=== PATIENT | female | born 1990 | race Hispanic/Latino ===

== ENCOUNTER 2016-10-25 09:11 | Emergency (ER) | payer MEDICAID ==
[~2016-10-25] VITALS: Ht 162.6 cm; Wt 61.2 kg
[~2016-10-25 09:11] MED LIST: ACHYD1T PO; DCS100C PO; DOCU100C37 PO; HYDR-34 PO; IBP800T PO; IBUP-1780 PO; NITR100C3 PO; OXYC-465 PO; PREN1TAB39 PO
--- OUTSIDE RECORDS SUMMARY | 2016-10-25 09:18 | XMS REPORT | Continuity of Care Document ---
Author Author [facility] Organization [facility] Address Unknown Phone Unavailable Care Team Providers Care Religion Instructor Name Role Phone ANABEL MADDOX MD PCP Insurance Providers Payer Name Policy Number Subscriber Name Relationship Belkis Kanc[employer] Amer[employer]p [id number] Meenu Stephens 18 Self / Same As Patient Advance Directives Directive Response Recorded Date/Time Advance Directives No 10/09/14 1:36pm Health Care Power of Tank Calibrator No 10/09/14 1:36pm Organ Donor Yes 10/09/14 1:36pm Resuscitation Status Full Code 10/09/14 1:36pm Problems No known problems or medical conditions. Medications Medication Dose Route Sig Days/Qty Instructions Order Date Discontinued Date Status Acetaminophen/Hydrocodone Bitart 1 - 2 Ea PO q3H PRN 08/18/10 Discontinued Ibuprofen 800 Mg PO EVERY 6 HOURS PRN 08/18/10 08/04/14 Discontinued Vits W-Ca,Fe,Fa(<1MG) 1 Each PO DAILY 08/18/10 Active Nitrofurantoin/Nitrofuran Mac 100 Mg PO TWICE A DAY 14 Qty 09/30/14 Discontinued Docusate Sodium 100 Mg PO TWICE A DAY 60 Qty 10/10/14 Active Acetaminophen/Hydrocodone Bitart 1-2 Ea PO EVERY 4HRS PRN PAIN 60 Qty 10/10/14 Active Ibuprofen 800 Mg PO EVERY 6 HOURS 60 Qty 10/10/14 Active Social History Social History Problem Response Recorded Date/Time Alcohol Use Denies Use 10/09/2014 1:27pm Recreational Drug Use No 10/09/2014 1:27pm Recent Foreign Travel No 10/09/2014 2:13pm Recent Infectious Disease Exposure No 10/09/2014 1:27pm Hospitalization with Isolation Denies 10/11/2014 12:07am Smoking Status Never a Smoker 10/09/2014 1:35pm Query Response Start Date Stop Date Smoking Status Never a Smoker Hospital Discharge Instructions Patient Instructions Physician Instructions New, Converted or Re-Newed RX: RX on Chart Plan of Care/Instructions/FU: As directed Activity as Tolerated: No Discharge Diet: No Restrictions Return to The Hospital For: as instructed Other Inst to Patient Follow Up Appt: Call to make follow up appt. for patient in 4 weeks. Activity Per routine post vaginal delivery instructions. Diet as tolerated Patient may shower or tub bathe as desired. Plan of Care Discharge Date 10/10/14 10:20pm Disposition 30 STILL A PATIENT Instructions/Education Provided VAGINAL DELIVERY DISCHARGE Forms Provided PDI Prescriptions See Medications Section Referrals ANABEL MADDOX MD (Unspecified) 11/07/14 Address: [address] [phone] Reason(s) for Referral: Follow-Up Appointment: Monday11/07/14 at 9:00 AM. Functional Status Query Response Date Recorded Patient Orientation Person Place Time Situation Normal For Age October 11, 2014 12:07am Allergies, Adverse Reactions, Alerts Allergen Type Severity Reaction Status Last Updated Codeine Allergy Unknown Active 06/08/08 Phenylephrine Allergy Unknown Active 06/08/08 Chlorpheniramine Allergy Unknown Active 06/08/08 Immunizations Name Given Type Tetanus Booster (TDap) Less than 5yrs Historical Tdap 10/10/14 Administered influenza, split (incl. purified surface antigen) 10/10/14 Administered Vital Signs Acute Vital Signs Vital Response Date/Time Temperature (Fahrenheit) 96.8 degrees F (97.6 - 99.5) Temperature (Calculated Celsius) 36.84819 degrees C (36.4 - 37.5) Temperature Source Tympanic Pulse Rate (adult) 84 bpm (60 - 90) Respiratory Rate 16 bpm (12 - 24) O2 Sat by Pulse Oximetry 98 % (88 - 100) Blood Pressure 109/61 mm Hg Pain Pain Intensity 0 Height (Feet) 5 feet Height (Inches) 5.00 inches Height (Calculated Centimeters) 165.899726 cm Weight (Pounds) 162 pounds Weight (Ounces) 4.0 oz Weight (Calculated Grams) 91122.965 gm Weight (Calculated Kilograms) 73.569541 kilograms Calculated BMI 26.96 Results Laboratory Results Test Name Result Units Flags Reference Collection Date/Time Result Date/ Time Comments White Blood Count 13.0 10^3/uL H 4.3-11.0 10/09/2014 11:57am 10/09/2014 12:21pm Red Blood Count 3.98 10^6/uL L 4.35-5.85 10/09/2014 11:57am 10/09/2014 12 :21pm Hemoglobin 12.0 G/DL 11.5-16.0 10/09/2014 11:57am 10/09/2014 12:21pm Hematocrit 34 % L 35-52 10/09/2014 11:57am 10/09/2014 12:21pm Mean Corpuscular Volume 86 FL 80-99 10/09/2014 11:57am 10/09/2014 12: 21pm Mean Corpuscular Hemoglobin 30 PG 25-34 10/09/2014 11:5710/09/2014 12:21pm Mean Corpuscular Hemoglobin Concent 35 G/DL 32-36 10/09/2014 11:57am 12:21pm Red Cell Distribution Width 12.3 % 10.0-14.5 10/09/2014 11:572014 12:21pm Platelet Count 277 10^3/uL 130-400 10/09/2014 11:57am 10/09/2014 12: 21pm Mean Platelet Volume 11.1 FL H 7.4-10.4 10/09/2014 11:5710/09/2014 12: 21pm Neutrophils (%) (Auto) 79 % H 42-75 10/09/2014 11:57am 10/09/2014 12: 21pm Lymphocytes (%) (Auto) 14 % 12-44 10/09/2014 11:57am 10/09/2014 12: 21pm Monocytes (%) (Auto) 7 % 0-12 10/09/2014 11:57am 10/09/2014 12:21pm Eosinophils (%) (Auto) 1 % 0-10 10/09/2014 11:57am 10/09/2014 12:21pm Basophils (%) (Auto) 0 % 0-10 10/09/2014 11:57am 10/09/2014 12:21pm Neutrophils # (Auto) 10.2 X 10^3 H 1.8-7.8 10/09/2014 11:57am 10/09/2014 12:21pm Lymphocytes # (Auto) 1.8 X 10^3 1.0-4.0 10/09/2014 11:57am 10/09/2014 12:21pm Monocytes # (Auto) 0.9 X 10^3 0.0-1.0 10/09/2014 11:57am 10/09/2014 12: 21pm Eosinophils # (Auto) 0.1 10^3/uL 0.0-0.3 10/09/2014 11:57am 10/09/2014 12:21pm Basophils # (Auto) 0.0 10^3/uL 0.0-0.1 10/09/2014 11:57am 10/09/2014 12 :21pm White Blood Count 11.2 10^3/uL H 4.3-11.0 09/29/2014 8:05pm 09/29/2014 8: 34pm Red Blood Count 3.86 10^6/uL L 4.35-5.85 09/29/2014 8:05pm 09/29/2014 8: 34pm Hemoglobin 11.6 G/DL 11.5-16.0 09/29/2014 8:05pm 09/29/2014 8:34pm Hematocrit 34 % L 35-52 09/29/2014 8:05pm 09/29/2014 8:34pm Mean Corpuscular Volume 88 FL 80-99 09/29/2014 8:05pm 09/29/2014 8: 34pm Mean Corpuscular Hemoglobin 30 PG 25-34 09/29/2014 8:05pm 09/29/2014 8: 34pm Mean Corpuscular Hemoglobin Concent 34 G/DL 32-36 09/29/2014 8:05pm 01/2015 8:34pm Red Cell Distribution Width 12.5 % 10.0-14.5 09/29/2014 8:05pm 2014 8:34pm Platelet Count 244 10^3/uL 130-400 09/29/2014 8:05pm 09/29/2014 8:34pm Mean Platelet Volume 11.3 FL H 7.4-10.4 09/29/2014 8:05pm 09/29/2014 8: 34pm Neutrophils (%) (Auto) 69 % 42-75 09/29/2014 8:05pm 09/29/2014 8:34pm Lymphocytes (%) (Auto) 20 % 12-44 09/29/2014 8:05pm 09/29/2014 8:34pm Monocytes (%) (Auto) 10 % 0-12 09/29/2014 8:05pm 09/29/2014 8:34pm Eosinophils (%) (Auto) 1 % 0-10 09/29/2014 8:05pm 09/29/2014 8:34pm Basophils (%) (Auto) 0 % 0-10 09/29/2014 8:05pm 09/29/2014 8:34pm Neutrophils # (Auto) 7.7 X 10^3 1.8-7.8 09/29/2014 8:05pm 09/29/2014 8: 34pm Lymphocytes # (Auto) 2.3 X 10^3 1.0-4.0 09/29/2014 8:05pm 09/29/2014 8: 34pm Monocytes # (Auto) 1.1 X 10^3 H 0.0-1.0 09/29/2014 8:05pm 09/29/2014 8: 34pm Eosinophils # (Auto) 0.1 10^3/uL 0.0-0.3 09/29/2014 8:05pm 09/29/2014 8 :34pm Basophils # (Auto) 0.0 10^3/uL 0.0-0.1 09/29/2014 8:05pm 09/29/2014 8: 34pm Urine Color YELLOW 09/29/2014 8:45pm 09/29/2014 9:57pm Urine Clarity CLEAR 09/29/2014 8:45pm 09/29/2014 9:57pm Urine pH 7 5-9 09/29/2014 8:45pm 09/29/2014 9:57pm Urine Specific [place] 1.015 * 1.016-1.022 09/29/2014 8:45pm 2014 9:57pm Urine Protein 2+ * NEGATIVE 09/29/2014 8:45pm 09/29/2014 9:57pm Urine Glucose (UA) NEGATIVE NEGATIVE 09/29/2014 8:45pm 09/29/2014 9: 57pm Urine RBC (Auto) NEGATIVE NEGATIVE 09/29/2014 8:45pm 09/29/2014 9: 57pm Urine Ketones NEGATIVE NEGATIVE 09/29/2014 8:45pm 09/29/2014 9:57pm Urine Nitrite NEGATIVE NEGATIVE 09/29/2014 8:45pm 09/29/2014 9:57pm Urine Bilirubin NEGATIVE NEGATIVE 09/29/2014 8:45pm 09/29/2014 9: 57pm Urine Urobilinogen 1 MG/DL NORMAL 09/29/2014 8:45pm 09/29/2014 9:57pm Urine Leukocyte Esterase 1+ * NEGATIVE 09/29/2014 8:45pm 09/29/2014 9: 57pm Urine RBC 0-2 /HPF 09/29/2014 8:45pm 09/29/2014 9:57pm Urine WBC 2-5 /HPF 09/29/2014 8:45pm 09/29/2014 9:57pm Urine Bacteria MODERATE /HPF * 09/29/2014 8:45pm 09/29/2014 9:57pm Urine Squamous Epithelial Cells 5-10 /HPF 09/29/2014 8:45pm 2014 9:57pm Urine Crystals PRESENT /LPF * 09/29/2014 8:45pm 09/29/2014 9:57pm Urine Amorphous Sediment MOD NEHA PHOSPHATE /LPF * 09/29/2014 8:45pm 9:57pm Urine Casts NONE /LPF 09/29/2014 8:45pm 09/29/2014 9:57pm Urine Mucus SMALL /LPF * 09/29/2014 8:45pm 09/29/2014 9:57pm Urine Culture Indicated YES 09/29/2014 8:45pm 09/29/2014 9:57pm Procedures Procedure Status Date Provider(s) Anesthesia consultation completed 10/20/14 ANABEL MADDOX MD Encounters Encounter Location Date/Time Discharged Inpatient Via [facility] 10/09/14 11:11am Discharged Inpatient Via [facility] 09/29/14 5:46pm
--- NOTE | 2016-10-25 10:18 | ED Headache ---
General Chief Complaint: Head/Cervical Problems Stated Complaint: POSS EXPOSURE TO CARBON MONOXIDE Source: patient, family, RN notes reviewed Exam Limitations: no limitations History of Present Illness Time seen by provider: 10:00 Initial Comments Having intermittent bad headaches since the . Throbbing; pounding. Worse c / position changes. No known fever. ? CO exposure. (+) nausea. Timing/Duration: other Severity/Quality: moderate (8/10) Location: global Prior Headaches/Recent Trauma: no recent headache/trauma Modifying Factors: worse with movement Associated Symptoms: No stiff neck, other ((+) nausea) Allergies and Home Medications Allergies Coded Allergies: chlorpheniramine (Verified Allergy, Unknown, 06/08/08) codeine (Verified Allergy, Unknown, 06/08/08) phenylephrine (Verified Allergy, Unknown, 06/08/08) Home Medications Aspirin/Acetaminophen/Caffeine 1 Each Tablet 1 EACH PO DAILY PRN PRN HEADACHE ( Reported) Cefdinir 300 Mg Capsule #14 300 MG PO BID Prescribed by: JELENA ROMERO on 10/25/16 1429 Ciprofloxacin HCl 500 Mg Tablet #10 500 MG PO BID Prescribed by: TASHA FERRARI on 10/31/16 1207 Metronidazole 500 Mg Tablet #14 500 MG PO BID Prescribed by: TASHA FERRARI on 10/31/16 1207 Potassium Chloride 20 Meq Tablet.er #8 40 MEQ PO BID Prescribed by: TASHA FERRARI on 10/31/16 1207 Prochlorperazine Maleate 5 Mg Tablet #10 5 MG PO Q8H PRN PRN NAUSEA/VOMITING Prescribed by: TASHA FERRARI on 10/31/16 1207 Constitutional: see HPINo fever Gastrointestinal: see HPI nausea : No Psychiatric/Neurological: See HPI Headache All Other Systems Reviewed Negative Unless Noted: Yes (Negative excepted noted.) Past Botndbg-Jyqskl-Sqetfp Hx Patient Social History Recent Foreign Travel: No Contact w/Someone Who Travel: No Recent Hopitalizations: No Immunizations Up To Date Tetanus Booster (TDap): Less than 5yrs Seasonal Allergies Seasonal Allergies: No Surgeries HX Surgeries: No Respiratory Hx Respiratory Disorders: No Cardiovascular Hx Cardiac Disorders: No Neurological Hx Neurological Disorders: No Reproductive System Hx Reproductive Disorders: No Genitourinary Hx Genitourinary Disorders: No Gastrointestinal Hx Gastrointestinal Disorders: No Musculoskeletal Hx Musculoskeletal Disorders: No Endocrine Hx Endocrine Disorders: No HEENT HX ENT Disorders: No Cancer Hx Cancer: No Psychosocial Hx Psychiatric Problems: No Integumentary HX Skin/Integumentary Disorder: No Blood Transfusions Hx Blood Disorders: No Adverse Reaction to a Blood Tr: No Family Medical History Family Medial History: Arthritis 19 MOTHER (MGM) Diabetes mellitus 19 MOTHER (MGM) Hypercholesterolemia 19 MOTHER (MGM) No Family History of: AIDS Abdominal aortic aneurysm Box Elder's disease Alcoholism Alzheimer's disease Aphasia Asthma Cancer of mouth Cardiovascular disease Cataracts Colon cancer Completed stroke Congenital disease Congenital heart disease Coronary thrombosis Cystic fibrosis Deafness or hearing loss Dementia Drug abuse Dysphasia Fibrocystic disease of breast Gastroenteritis Glaucoma Headache disorder Hypertension Infertility Kidney disease Myocardial infarction Neoplasm Not obtainable due to adoption Osteoporosis Parkinson's disease Prostate cancer Psychosocial problem Respiratory disorder Seizure disorder Severe allergy Thyroid disease Tuberculosis Visual disorder Physical Exam Vital Signs Capillary Refill : General Appearance: WD/WN other (appears uncomfortable) HEENT: PERRL/EOMI TMs normal pharynx normal Neck: supple Cardiovascular: regular rate, rhythm Respiratory: no respiratory distress Gastrointestinal: other (flat; benign) Psychiatric: alert oriented x 3 depressed affect Crainal Nerves: normal hearing normal speech PERRL Coordination/Gait: normal finger to nose Motor/Sensory: no motor deficit no sensory deficit no pronator drift Skin: warm/dry Lymphatic: no adenopathy Progress/Results/Core Measures Results/Orders Lab Results Laboratory Tests Test 10/25/16 10:00 10/25/16 11:11 10/25/16 11:50 Range/Units Alanine Aminotransferase (ALT/SGPT) 26 0-55 U/L Albumin 4.2 3.2-4.5 G/DL Alkaline Phosphatase 33 L 40-136 U/L Anion Gap 10 5-14 MMOL/L Aspartate Amino Transf (AST/SGOT) 21 5-34 U/L BUN/Creatinine Ratio 22 Basophils # (Auto) 0.0 0.0-0.1 10^3/uL Basophils (%) (Auto) 1 0-10 % Blood Urea Nitrogen 15 7-18 MG/DL Calcium Level 9.2 8.5-10.1 MG/DL Carbon Dioxide Level 26 21-32 MMOL/L Carboxyhemoglobin 3.7 H 0.5-2.5 % Chloride Level 107 98-107 MMOL/L Creatinine 0.67 0.60-1.30 MG/DL Eosinophils # (Auto) 0.1 0.0-0.3 10^3/uL Eosinophils (%) (Auto) 1 0-10 % Estimat Glomerular Filtration Rate > 60 Glucose Level 86 70-105 MG/DL Hematocrit 38 35-52 % Hemoglobin 13.1 11.5-16.0 G/DL Lymphocytes # (Auto) 1.6 1.0-4.0 X 10^3 Lymphocytes (%) (Auto) 31 12-44 % Mean Corpuscular Hemoglobin 30 25-34 PG Mean Corpuscular Hemoglobin Concent 34 32-36 G/DL Mean Corpuscular Volume 87 80-99 FL Mean Platelet Volume 11.6 H 7.4-10.4 FL Monocytes # (Auto) 0.8 0.0-1.0 X 10^3 Monocytes (%) (Auto) 16 H 0-12 % Neutrophils # (Auto) 2.6 1.8-7.8 X 10^3 Neutrophils (%) (Auto) 50 42-75 % Platelet Count 310 130-400 10^3/uL Potassium Level 3.3 L 3.6-5.0 MMOL/L Red Blood Count 4.39 4.35-5.85 10^6/uL Red Cell Distribution Width 12.0 10.0-14.5 % Sodium Level 143 135-145 MMOL/L Total Bilirubin 1.1 H 0.1-1.0 MG/DL Total Protein 6.7 6.4-8.2 G/DL White Blood Count 5.1 4.3-11.0 10^3/uL Serum Test, Qualitative NEGATIVE NEGATIVE Urine Amorphous Sediment MOD NEHA URATES H /LPF Urine Bacteria FEW H /HPF Urine Bilirubin 1+ H NEGATIVE Urine Casts NONE /LPF Urine Clarity SLIGHTLY CLOUDY Urine Color SCOTT H Urine Crystals PRESENT H /LPF Urine Culture Indicated YES Urine Glucose (UA) NEGATIVE NEGATIVE Urine Ketones 4+ H NEGATIVE Urine Leukocyte Esterase 1+ H NEGATIVE Urine Mucus LARGE H /LPF Urine Nitrite NEGATIVE NEGATIVE Urine Protein 2+ H NEGATIVE Urine RBC NONE /HPF Urine RBC (Auto) NEGATIVE NEGATIVE Urine Specific [place] 1.020 1.016-1.022 Urine Squamous Epithelial Cells 10-25 H /HPF Urine Urobilinogen 4 H NORMAL MG/DL Urine WBC 5-10 H /HPF Urine pH 6 5-9 Micro Results Microbiology 10/25/16 Influenza Types A,B Antigen (NIKO) - Final, Complete 10/25/16 Urine Culture - Final, Complete My Orders Orders-JELENA ROMERO DO Carboxyhemoglobin (10/25/16 09:41) Saline Lock/Iv-Start (10/25/16 10:35) Cbc With Automated Diff (10/25/16 10:35) Comprehensive Metabolic Panel (10/25/16 10:35) Hcg,Qualitative Serum (10/25/16 10:35) Ua Culture If Indicated (10/25/16 10:35) Influenza A And B Antigens (10/25/16 10:35) Ketorolac Injection (Toradol Injection) (10/25/16 10:45) Urine Culture (10/25/16 11:50) Saline Lock/Iv-Start (10/25/16 12:28) Ceftriaxone Injection (Rocephin Injectio (10/25/16 12:30) D5 Ns 1000 Ml Iv Solution (Dextrose 5%/0 (10/25/16 12:28) Saline Lock/Iv-Start (10/25/16 13:35) D5 Ns 1000 Ml Iv Solution (Dextrose 5%/0 (10/25/16 13:35) Ondansetron Injection (Zofran Injectio (10/25/16 14:55) Diphenhydramine Injection (Benadryl Inje (10/25/16 15:45) Prochlorperazine Injection (Compazine In (10/25/16 15:45) Iv Infusion <= First Hr Ed (10/25/16 ) Medications Given in ED Vital Signs/I&O Progress Note : Progress Note Much better p/ IVF's and meds. Admits to poor po intake. Departure Impression Impression: Primary Impression: Vascular headache Additional Impressions: UTI (urinary tract infection) Hypovolemia due to dehydration Disposition: 01 HOME, SELF-CARE Condition: Improved Departure-Patient Inst. Decision time for Depature: 14:27 Referrals: [facility] (PCP/Family) Primary Care Physician Patient Instructions: Dehydration, Adult (DC), Headache, Adult (DC), Urinary Tract Infection, Adult (DC) Add. Discharge Instructions: All discharge instructions reviewed with patient and/or family. Voiced understanding. ALSO GIVEN Rx FOR ZOFRAN 4 mg #10 1 PO Q 6 H PRN N/V. Scripts Cefdinir 300 Mg [id number] Mg PO BID uti #14 CAP Ref 0 Prov:JELENA ROMERO Livia DO 10/25/16 JELENA ROMERO Livia DO Oct 25, 2016 10:18 Dextrose/Sodium Chloride 1,000 ml @ 0 mls/hr Q0M ONCE IV 10/25/16 13:35 10/25/16 13:37 DC 10/25/16 14:01 0 MLS/HR Ketorolac Tromethamine 30 mg 30 mg ONCE ONCE IVP 10/25/16 10:45 10/25/16 10:46 DC 10/25/16 11:16 30 MG Vital Signs/I&O Vital Sign - Last 12Hours 10/25/16 09:25 Temp 99.1 Pulse 70 Resp 16 B/P 135/68 O2 Delivery Room Air Progress Note : Progress Note Much better p/ IVF's and meds. Admits to poor po intake. Departure Impression Impression: Primary Impression: Vascular headache Additional Impressions: UTI (urinary tract infection) Hypovolemia due to dehydration Disposition: 01 HOME, SELF-CARE Condition: Improved Departure-Patient Inst. Decision time for Depature: 14:27 Referrals: [facility] (PCP/Family) Primary Care Physician Patient Instructions: Dehydration, Adult (DC), Headache, Adult (DC), Urinary Tract Infection, Adult (DC) Add. Discharge Instructions: All discharge instructions reviewed with patient and/or family. Voiced understanding. ALSO GIVEN Rx FOR ZOFRAN 4 mg #10 1 PO Q 6 H PRN N/V. Scripts Cefdinir 300 Mg [id number] Mg PO BID uti #14 CAP Ref 0 Prov:NICKJELENA MALDONADO Livia DO 10/25/16 JELENA ROMERO DO Oct 25, 2016 10:18
[2016-10-25] MEDS ORDERED: KETOROLAC 30 MG/ML VIAL IVP ONE (10:45)
[2016-10-25 11:11] LABS: BASOPHILS % (AUTO) 1 % (0-10); EOSINOPHILS # (AUTO) 0.1 10^3/uL (0.0-0.3); EOSINOPHILS % (AUTO) 1 % (0-10); LYMPHOCYTES # (AUTO) 1.6 X 10^3 (1.0-4.0); LYMPHOCYTES % (AUTO) 31 % (12-44); MEAN CORPUSCULAR HEMOGLOBIN 30 PG (25-34); MEAN CORPUSCULAR HGB CONC 34 G/DL (32-36); MEAN CORPUSCULAR VOLUME 87 FL (80-99); MEAN PLATELET VOLUME 11.6 FL (7.4-10.4); MONOCYTES # (AUTO) 0.8 X 10^3 (0.0-1.0); MONOCYTES % (AUTO) 16 % (0-12); NEUTROPHILS # (AUTO) 2.6 X 10^3 (1.8-7.8); NEUTROPHILS % (AUTO) 50 % (42-75); PLATELET COUNT 310 10^3/uL (130-400); RED BLOOD COUNT 4.39 10^6/uL (4.35-5.85); WHITE BLOOD COUNT 5.1 10^3/uL (4.3-11.0)
[2016-10-25 11:27] LABS: ALANINE AMINOTRANSFERASE 26 U/L (0-55); ALBUMIN 4.2 G/DL (3.2-4.5); ANION GAP 10 MMOL/L (5-14); ASPARTATE AMINO TRANSFERASE 21 U/L (5-34); BILIRUBIN,TOTAL 1.1 MG/DL (0.1-1.0); BLOOD UREA NITROGEN 15 MG/DL (7-18); BUN/CREATININE RATIO 22; CALCIUM 9.2 MG/DL (8.5-10.1); CARBON DIOXIDE 26 MMOL/L (21-32); CHLORIDE 107 MMOL/L (98-107); CREATININE SERUM 0.67 MG/DL (0.60-1.30); GFR ESTIMATED > 60; GLUCOSE 86 MG/DL (70-105); POTASSIUM 3.3 MMOL/L (3.6-5.0); SODIUM 143 MMOL/L (135-145); TOTAL PROTEIN 6.7 G/DL (6.4-8.2)
[2016-10-25 12:01] LABS: KETONES,URINE 4+ (NEGATIVE); LEUKOCYTE ESTERASE ,URINE 1+ (NEGATIVE); NITRITE,URINE NEGATIVE (NEGATIVE); PH,URINE 6 (5-9); PROTEIN,URINE 2+ (NEGATIVE); UROBILINOGEN,URINE 4 MG/DL (NORMAL)
[2016-10-25 12:18] LABS: BILIRUBIN,URINE 1+ (NEGATIVE)
[2016-10-25] MEDS ORDERED: D5 NS 1000 ML IV SOLUTION 1,000 ML IV ONE ×2 (12:28→13:35)
[2016-10-25] MEDS ORDERED: cefTRIAXone INJECTION 1,000 MG in NORMAL SALINE (BAXTER MINI) 50 ML IV ONE (12:30)
[2016-10-25] MEDS ORDERED: CEFD300C3 PO (14:29)
[2016-10-25] MEDS ORDERED: ONDANSETRON 4 MG/2 ML (SDV) Z0FRAN ONE (14:55)
[2016-10-25] MEDS ORDERED: diphenhydrAMINE 50 MG/ML INJ (BENADRYL) IVP ONE (15:45)
[2016-10-25] MEDS ORDERED: PROCHLORPERAZINE 10 MG/2ML INJ (COMPAZINE) IV ONE (15:45)
[2016-10-25 16:11] VITALS: BP 101/64
== END 2016-10-25 16:15 | disposition home or self-care (01) ==
LOC: EDUNIT# 09:11 → ER 09:14
DX: G44.1 Vascular headache, not elsewhere classified (principal); N39.0 Urinary tract infection, site not specified; E86.0 Dehydration; E86.1 Hypovolemia
CPT/HCPCS: 36415; 80053; 81000; 82375; 84703; 85025; 87088; 87804; 96361; 96365; 96375

== ENCOUNTER 2016-10-31 11:08 | Emergency (ER) | payer MEDICAID ==
[~2016-10-31] VITALS: Ht 162.6 cm; Wt 61.5 kg
[~2016-10-31 11:08] MED LIST changes: +CEFD300C3 PO
--- OUTSIDE RECORDS SUMMARY | 2016-10-31 11:13 | XMS REPORT | Continuity of Care Document ---
Author Author [facility] Organization [facility] Address Unknown Phone Unavailable Care Team Providers Care Flexographic Press Set Up Operator Name Role Phone ANABEL MADDOX MD PCP Insurance Providers Payer Name Policy Number Subscriber Name Relationship Belkis K[employer] Amerigrp [id number] Meenu Stephens 18 Self / Same As Patient Advance Directives Directive Response Recorded Date/Time Advance Directives No 10/09/14 1:36pm Health Care Power of Shed Boss No 10/09/14 1:36pm Organ Donor Yes 10/09/14 [...] Referrals ANABEL MADDOX MD (Unspecified) 11/07/14 Address: [address] [phone] Reason(s) for Referral: Follow-Up Appointment: Monday11/07/14 at [...] F (97.6 - 99.5) Temperature (Calculated Celsius) 36.59870 degrees C (36.4 - 37.5) Temperature Source Tympanic Pulse Rate (adult) 84 bpm (60 - 90) Respiratory Rate 16 bpm (12 - 24) O2 Sat by Pulse Oximetry 98 % (88 - 100) Blood Pressure 109/61 mm Hg Pain Pain Intensity 0 Height (Feet) 5 feet Height (Inches) 5.00 inches Height (Calculated Centimeters) 165.802008 cm Weight (Pounds) 162 pounds Weight (Ounces) 4.0 oz Weight (Calculated Grams) 37266.965 gm Weight (Calculated Kilograms) 73.935482 kilograms Calculated BMI 26.96 Results Laboratory Results [...] 5-9 09/29/2014 8:45pm 09/29/2014 9:57pm Urine Specific [place] 1.015 * 1.016-1.022 09/29/2014 8:45pm 2014 9:57pm [...] Encounters Encounter Location Date/Time Discharged Inpatient Via [facility] 10/09/14 11:11am Discharged Inpatient Via [facility] 09/29/14 5:46pm
[2016-10-31] MEDS ORDERED: NS IV 1000 ML 1,000 ML IV SCH (11:15)
--- NOTE | 2016-10-31 11:24 | ED Abdominal Pain ---
General Chief Complaint: -Female Stated Complaint: UTI;DEHYDRATION Source of Information: Patient Exam Limitations: No Limitations History of Present Illness Time Seen By Provider: 11:22 Initial Comments To ER with nausea and vomiting that is worse with sitting up. She was seen here a few days ago for a severe headache, given medications which improved her symptoms and sent home. She was diagnosed with urinary tract infection. She has been taking her antibiotics and drinking Gatorade but states that in order to not be nauseous she has to lay flat and lay still. She denies diarrhea. She reports chills but no measured fevers. No pain. States that her headaches are much better. Timing/Duration: 4-5 Days Radiation: No Radiation Associated Symptoms: Nausea/Vomiting Allergies and Home Medications Allergies Coded Allergies: chlorpheniramine (Verified Allergy, Unknown, 06/08/08) codeine (Verified Allergy, Unknown, 06/08/08) phenylephrine (Verified Allergy, Unknown, 06/08/08) Home Medications Aspirin/Acetaminophen/Caffeine 1 Each Tablet 1 EACH PO DAILY PRN PRN HEADACHE ( Reported) Cefdinir 300 Mg Capsule #14 300 MG PO BID Prescribed by: JELENA ROMERO on 10/25/16 1429 Review of Systems Constitutional: see HPI EENTM: No Symptoms Reported Respiratory: No Symptoms Reported Cardiovascular: No Symptoms Reported Gastrointestinal: See HPI Nausea Vomiting Genitourinary: No Symptoms Reported Musculoskeletal: no symptoms reported Skin: no symptoms reported Psychiatric/Neurological: No Symptoms Reported Endocrine: No Symptoms Reported Hematologic/Lymphatic: No Symptoms Reported Past Lyqceup-Fcnhnp-Nosqss Hx Patient Social History Recent Foreign Travel: No Contact w/Someone Who Travel: No Recent Hopitalizations: No Immunizations Up To Date Tetanus Booster (TDap): Less than 5yrs Seasonal Allergies Seasonal Allergies: No Surgeries HX Surgeries: No Respiratory Hx Respiratory Disorders: No Cardiovascular Hx Cardiac Disorders: No Neurological Hx Neurological Disorders: No Reproductive System Hx Reproductive Disorders: No Genitourinary Hx Genitourinary Disorders: No Gastrointestinal Hx Gastrointestinal Disorders: No Musculoskeletal Hx Musculoskeletal Disorders: No Endocrine Hx Endocrine Disorders: No HEENT HX ENT Disorders: No Cancer Hx Cancer: No Psychosocial Hx Psychiatric Problems: No Integumentary HX Skin/Integumentary Disorder: No Blood Transfusions Hx Blood Disorders: No Adverse Reaction to a Blood Tr: No Family Medical History Family Medial History: Arthritis 19 MOTHER (MGM) Diabetes mellitus 19 MOTHER (MGM) Hypercholesterolemia 19 MOTHER (MGM) No Family History of: AIDS Abdominal aortic aneurysm [place]viers's disease Alcoholism Alzheimer's disease Aphasia Asthma Cancer of mouth Cardiovascular disease Cataracts Colon cancer Completed stroke Congenital disease Congenital heart disease Coronary thrombosis Cystic fibrosis Deafness or hearing loss Dementia Drug abuse Dysphasia Fibrocystic disease of breast Gastroenteritis Glaucoma Headache disorder Hypertension Infertility Kidney disease Myocardial infarction Neoplasm Not obtainable due to adoption Osteoporosis Parkinson's disease Prostate cancer Psychosocial problem Respiratory disorder Seizure disorder Severe allergy Thyroid disease Tuberculosis Visual disorder Physical Exam Vital Signs VS - Last 72 Hours, by Label 10/31/16 11:21 Temp 97.6 Pulse 57 Resp 18 B/P 118/84 Pulse Ox 96 Capillary Refill : General Appearance: WD/WN no apparent distress other (at this time, she is laying in bed with the head of the bed elevated at about 30 and she denies any headache or nausea at this time. She is not hypertensive, hypotensive or tachycardic.) HEENT: PERRL/EOMI normal ENT inspection Neck: non-tender full range of motion Respiratory: normal breath sounds no respiratory distress no accessory muscle use Cardiovascular: regular rate, rhythm no murmur Gastrointestinal: normal bowel sounds non tender soft Extremities: normal range of motion non-tender Back: No CVA tenderness (R), No CVA tenderness (L) Neurologic/Psychiatric: alert normal mood/affect oriented x 3 Skin: normal color warm/dry Progress/Results/Core Measures Results/Orders Lab Results Laboratory Tests Test 10/31/16 11:13 10/31/16 11:16 Range/Units Ur Tricyclic Antidepressants Screen NEGATIVE NEGATIVE Urine Amphetamines Screen NEGATIVE NEGATIVE Urine Bacteria TRACE /HPF Urine Barbiturates Screen NEGATIVE NEGATIVE Urine Benzodiazepines Screen NEGATIVE NEGATIVE Urine Bilirubin 2+ H NEGATIVE Urine Cannabinoids Screen POSITIVE H NEGATIVE Urine Casts NONE /LPF Urine Clarity SLIGHTLY CLOUDY Urine Cocaine Screen NEGATIVE NEGATIVE Urine Color SCOTT H Urine Crystals NONE /LPF Urine Culture Indicated YES Urine Glucose (UA) NEGATIVE NEGATIVE Urine Ketones 3+ H NEGATIVE Urine Leukocyte Esterase 1+ H NEGATIVE Urine Methadone Screen NEGATIVE NEGATIVE Urine Methamphetamines Screen NEGATIVE NEGATIVE Urine Mucus LARGE H /LPF Urine Nitrite POSITIVE H NEGATIVE Urine Opiates Screen NEGATIVE NEGATIVE Urine Oxycodone Screen NEGATIVE NEGATIVE Urine Phencyclidine Screen NEGATIVE NEGATIVE Urine Propoxyphene Screen NEGATIVE NEGATIVE Urine Protein 3+ H NEGATIVE Urine RBC RARE /HPF Urine RBC (Auto) NEGATIVE NEGATIVE Urine Specific [place] 1.030 H 1.016-1.022 Urine Squamous Epithelial Cells >50 H /HPF Urine Urobilinogen 4 H NORMAL MG/DL Urine WBC 10-25 H /HPF Urine pH 6 5-9 Alanine Aminotransferase (ALT/SGPT) 18 0-55 U/L Albumin 4.5 3.2-4.5 G/DL Alkaline Phosphatase 31 L 40-136 U/L Anion Gap 14 5-14 MMOL/L Aspartate Amino Transf (AST/SGOT) 20 5-34 U/L BUN/Creatinine Ratio 17 Basophils # (Auto) 0.0 0.0-0.1 10^3/uL Basophils (%) (Auto) 1 0-10 % Blood Urea Nitrogen 12 7-18 MG/DL Calcium Level 9.7 8.5-10.1 MG/DL Carbon Dioxide Level 28 21-32 MMOL/L Chloride Level 102 98-107 MMOL/L Creatinine 0.69 0.60-1.30 MG/DL Eosinophils # (Auto) 0.1 0.0-0.3 10^3/uL Eosinophils (%) (Auto) 2 0-10 % Estimat Glomerular Filtration Rate > 60 Glucose Level 95 70-105 MG/DL Hematocrit 41 35-52 % Hemoglobin 14.5 11.5-16.0 G/DL Lymphocytes # (Auto) 2.4 1.0-4.0 X 10^3 Lymphocytes (%) (Auto) 40 12-44 % Mean Corpuscular Hemoglobin 30 25-34 PG Mean Corpuscular Hemoglobin Concent 36 32-36 G/DL Mean Corpuscular Volume 86 80-99 FL Mean Platelet Volume 11.4 H 7.4-10.4 FL Monocytes # (Auto) 0.7 0.0-1.0 X 10^3 Monocytes (%) (Auto) 12 0-12 % Neutrophils # (Auto) 2.7 1.8-7.8 X 10^3 Neutrophils (%) (Auto) 46 42-75 % Platelet Count 377 130-400 10^3/uL Potassium Level 2.7 L 3.6-5.0 MMOL/L Red Blood Count 4.77 4.35-5.85 10^6/uL Red Cell Distribution Width 12.5 10.0-14.5 % Sodium Level 144 135-145 MMOL/L Total Bilirubin 1.3 H 0.1-1.0 MG/DL Total Protein 7.4 6.4-8.2 G/DL White Blood Count 5.9 4.3-11.0 10^3/uL My Orders Orders-TASHA FERRARI APRN Ua Culture If Indicated (10/31/16 11:08) Saline Lock/Iv-Start (10/31/16 11:08) Cbc With Automated Diff (10/31/16 11:08) Comprehensive Metabolic Panel (10/31/16 11:08) Urine Bedside (10/31/16 11:08) Ns Iv 1000 Ml (Sodium Chloride 0.9%) (10/31/16 11:15) Diphenhydramine Injection (Benadryl Inje (10/31/16 11:30) Prochlorperazine Injection (Compazine In (10/31/16 11:30) Drug Screen Stat (Urine) (10/31/16 11:21) Urine Culture (10/31/16 11:13) Ceftriaxone Injection (Rocephin Injectio (10/31/16 12:00) Metronidazole Tablet (Flagyl Tablet) (10/31/16 12:00) Potassium Chloride Powder (Klor Con 20 M (10/31/16 12:00) Medications Given in ED Current Medications Medications Dose Ordered Sig/Renee Route Start Time Stop Time Status Last Admin Dose Admin Diphenhydramine HCl 12.5 mg ONCE ONCE IVP 10/31/16 11:30 10/31/16 11:31 DC 10/31/16 11:33 12.5 MG Prochlorperazine Edisylate 5 mg ONCE ONCE IV 10/31/16 11:30 10/31/16 11:31 DC 10/31/16 11:33 5 MG Vital Signs/I&O Vital Sign - Last 12Hours 10/31/16 11:21 Temp 97.6 Pulse 57 Resp 18 B/P 118/84 Pulse Ox 96 Progress Note : Progress Note 1202-her urinalysis from a few days ago showed Gardnerella. We will give Flagyl. Departure Impression Impression: Primary Impression: Gardnerella infection Additional Impressions: Nausea & vomiting Urinary tract infection Qualified Code: N30.00 - Acute cystitis without hematuria Disposition: 01 HOME, SELF-CARE Condition: Stable Departure-Patient Inst. Decision time for Depature: 12:03 Referrals: [facility] (PCP/Family) Primary Care Physician Patient Instructions: Urinary Tract Infection, Adult (DC) Add. Discharge Instructions: Stop the Omnicef antibiotics that you are currently on and start the new antibiotics 2. Follow-up with your regular doctor later this week for recheck All discharge instructions reviewed with patient and/or family. Voiced understanding. Scripts Prochlorperazine Maleate (Compazine)5 Mg Tablet5 Mg PO Q8H PRN NAUSEA/VOMITING # 10 TAB Prov:TASHA FERRARI APRN 10/31/16 Potassium Chloride 20 Meq Tablet.er40 Meq PO BID #8 TAB Prov:TASHA FERRARI APRN 10/31/16 Metronidazole (Flagyl)500 Mg [id number] Mg PO BID #14 TAB Prov:TASHA FERRARI APRN 10/31/16 Ciprofloxacin HCl (Cipro)500 Mg [id number] Mg PO BID #10 TAB Prov:TASHA FERRARI APRN 10/31/16 TASHA FERRARI APRN Oct 31, 2016 11:24
[2016-10-31] MEDS ORDERED: ASPI-992 PO (11:27)
[2016-10-31 11:30] LABS: BASOPHILS % (AUTO) 1 % (0-10); EOSINOPHILS # (AUTO) 0.1 10^3/uL (0.0-0.3); EOSINOPHILS % (AUTO) 2 % (0-10); LYMPHOCYTES # (AUTO) 2.4 X 10^3 (1.0-4.0); LYMPHOCYTES % (AUTO) 40 % (12-44); MEAN CORPUSCULAR HEMOGLOBIN 30 PG (25-34); MEAN CORPUSCULAR HGB CONC 36 G/DL (32-36); MEAN CORPUSCULAR VOLUME 86 FL (80-99); MEAN PLATELET VOLUME 11.4 FL (7.4-10.4); MONOCYTES # (AUTO) 0.7 X 10^3 (0.0-1.0); MONOCYTES % (AUTO) 12 % (0-12); NEUTROPHILS # (AUTO) 2.7 X 10^3 (1.8-7.8); NEUTROPHILS % (AUTO) 46 % (42-75); PLATELET COUNT 377 10^3/uL (130-400); RED BLOOD COUNT 4.77 10^6/uL (4.35-5.85); RED CELL DISTRIBUTION WIDTH 12.5 % (10.0-14.5); WHITE BLOOD COUNT 5.9 10^3/uL (4.3-11.0)
[2016-10-31] MEDS ORDERED: PROCHLORPERAZINE 10 MG/2ML INJ (COMPAZINE) IV ONE (11:30)
[2016-10-31] MEDS ORDERED: diphenhydrAMINE 50 MG/ML INJ (BENADRYL) IVP ONE (11:30)
[2016-10-31 11:34] LABS: KETONES,URINE 3+ (NEGATIVE); LEUKOCYTE ESTERASE ,URINE 1+ (NEGATIVE); NITRITE,URINE POSITIVE (NEGATIVE); PH,URINE 6 (5-9); PROTEIN,URINE 3+ (NEGATIVE); UROBILINOGEN,URINE 4 MG/DL (NORMAL)
[2016-10-31 11:46] LABS: BILIRUBIN,URINE 2+ (NEGATIVE); SQUAMOUS EPITHELIAL CELL,UR >50 /HPF
[2016-10-31 11:52] LABS: ALANINE AMINOTRANSFERASE 18 U/L (0-55); ALBUMIN 4.5 G/DL (3.2-4.5); ANION GAP 14 MMOL/L (5-14); ASPARTATE AMINO TRANSFERASE 20 U/L (5-34); BILIRUBIN,TOTAL 1.3 MG/DL (0.1-1.0); BLOOD UREA NITROGEN 12 MG/DL (7-18); BUN/CREATININE RATIO 17; CALCIUM 9.7 MG/DL (8.5-10.1); CARBON DIOXIDE 28 MMOL/L (21-32); CHLORIDE 102 MMOL/L (98-107); CREATININE SERUM 0.69 MG/DL (0.60-1.30); GFR ESTIMATED > 60; GLUCOSE 95 MG/DL (70-105); POTASSIUM 2.7 MMOL/L (3.6-5.0); SODIUM 144 MMOL/L (135-145); TOTAL PROTEIN 7.4 G/DL (6.4-8.2)
[2016-10-31] MEDS ORDERED: metroNIDAZOLE 500 MG (FLAGYL) TAB PO ONE (12:00)
[2016-10-31] MEDS ORDERED: cefTRIAXone INJECTION 1,000 MG in NS (IVPB) 50 ML IV ONE (12:00)
[2016-10-31] MEDS ORDERED: KCL 20 MEQ POWDER FOR ORAL SOLUTION PO ONE (12:00)
[2016-10-31] MEDS ORDERED: METR500T PO (12:07)
[2016-10-31] MEDS ORDERED: CIPR-225 PO (12:07)
[2016-10-31] MEDS ORDERED: POTA-51 PO (12:07)
[2016-10-31] MEDS ORDERED: PROC5TAB52 PO (12:07)
[2016-10-31] MEDS ORDERED: LEVOFLOXACIN 500 MG TAB (LEVAQUIN) PO ONE (12:15)
[2016-10-31 12:30] VITALS: BP 113/68
[2016-10-31] MEDS ORDERED: KCL 20 MEQ TAB (K-DUR) PO ONE (12:30)
== END 2016-10-31 12:31 | disposition home or self-care (01) ==
LOC: EDUNIT# 11:08 → ER 11:09
DX: N39.0 Urinary tract infection, site not specified (principal); B96.89 Other specified bacterial agents as the cause of diseases classified elsewhere; R11.2 Nausea with vomiting, unspecified
CPT/HCPCS: 36415; 80053; 80306; 81000; 84703; 85025; 87088; 96361; 96374; 96375